=== PATIENT | female | born 1935 | race African-American/Black ===

== ENCOUNTER 2017-01-19 19:02 | Emergency (ER) | payer OTHER ==
[~2017-01-19] VITALS: Ht 162.6 cm; Wt 70.0 kg
[~2017-01-19 19:02] MED LIST: ALBUTEROL; ATENOLOL
[2017-01-19] MEDS ORDERED: MAGNESIUM/ALUMINUM HYDROXIDE/SIMETHICONE 30ML UDC PO ONE (19:30)
[2017-01-19 20:15] VITALS: BP 122/74
== END 2017-01-19 20:43 | disposition home or self-care (01) ==
LOC: ER 20:10
DX: T54.91XA Toxic effect of unspecified corrosive substance, accidental (unintentional), initial encounter (principal); Y92.9 Unspecified place or not applicable; I10 Essential (primary) hypertension; J98.11 Atelectasis; Q25.46 Tortuous aortic arch; I51.7 Cardiomegaly; F03.90 Unspecified dementia, unspecified severity, without behavioral disturbance, psychotic disturbance, mood disturbance, and anxiety; H40.9 Unspecified glaucoma; Z88.0 Allergy status to penicillin
CPT/HCPCS: 71010; 99283

== ENCOUNTER 2020-11-07 23:05 | Emergency (ER) | payer OTHER ==
[~2020-11-07] VITALS: Ht 167.6 cm; Wt 73.0 kg
[2020-11-08] MEDS ORDERED: ASPIRIN 81MG TABLET PO ONE (01:00)
[2020-11-08 01:52] LABS: CHLORIDE 111 mEq/L (98-107)
[2020-11-08 01:56] LABS: BASOPHILS % 0.4 % (0.0-2.0); EOSINOPHILS % 0.6 % (0.0-5.0); HEMATOCRIT. 35.5 % (36.0-48.0); HEMOGLOBIN. 11.6 g/dL (12.0-16.0); LYMPHOCYTES % 42.5 % (20.0-50.0); MEAN CORPUSCULAR HEMOGLOBIN 30.2 pg (28.0-32.0); MEAN CORPUSCULAR VOLUME 92.4 fL (81.0-99.0); MEAN PLATELET VOLUME 10.7 fl (7.4-10.4); MONOCYTES % 13.5 % (2.0-8.0); PLATELET 94 x1000/uL (130-400); RED BLOOD CELL COUNT 3.85 mill/uL (4.2-5.4); RED CELL DISTRIBUTION WIDTH 13.5 % (11.6-14.6)
[2020-11-08] MEDS ORDERED: FUROSEMIDE 40MG TABLET PO NR (03:00)
[2020-11-08 05:35] VITALS: BP 157/52
== END 2020-11-08 05:54 | disposition home or self-care (01) ==
LOC: ER 23:33
DX: R60.0 Localized edema (principal); I10 Essential (primary) hypertension; F03.90 Unspecified dementia, unspecified severity, without behavioral disturbance, psychotic disturbance, mood disturbance, and anxiety; H40.9 Unspecified glaucoma; Z98.890 Other specified postprocedural states; Z88.0 Allergy status to penicillin
CPT/HCPCS: 36415; 71045; 80053; 83880; 84484; 85025; 93005; 93970; 99285

== ENCOUNTER 2021-08-03 08:07 | Emergency (ER) | payer OTHER ==
[~2021-08-03] VITALS: Ht 165.1 cm; Wt 65.0 kg
[2021-08-03] MEDS ORDERED: SODIUM CHLORIDE 0.9% 500 ML IV ONE (08:30)
[2021-08-03] MEDS ORDERED: ACETAMINOPHEN 325MG TABLET PO ONE (08:45)
[2021-08-03 08:47] LABS: BASOPHILS % 0.2 % (0.0-2.0); EOSINOPHILS % 0.4 % (0.0-5.0); HEMATOCRIT. 35.2 % (36.0-48.0); HEMOGLOBIN. 11.7 g/dL (12.0-16.0); LYMPHOCYTES % 44.2 % (20.0-50.0); MEAN CORPUSCULAR HEMOGLOBIN 29.8 pg (28.0-32.0); MEAN CORPUSCULAR VOLUME 89.2 fL (81.0-99.0); MONOCYTES % 12.1 % (2.0-8.0); NEUTROPHILS % 43.1 % (40.0-76.0); PLATELET 131 x1000/uL (130-400); RED BLOOD CELL COUNT 3.94 mill/uL (4.2-5.4); RED CELL DISTRIBUTION WIDTH 13.9 % (11.6-14.6)
[2021-08-03 08:55] LABS: CHLORIDE 108 mEq/L (98-107)
[2021-08-03] MEDS ORDERED: FAMOTIDINE 20MG/2ML VIAL IV ONE (09:15)
[2021-08-03 10:51] LABS: CLARITY URINE CLEAR (CLEAR); COLOR URINE YELLOW (YELLOW); KETONES URINE TRACE (NEGATIVE); LEUKOCYTE ESTERASE URINE 2+ (NEGATIVE); NITRITE URINE NEGATIVE (NEGATIVE); OCCULT BLOOD URINE NEGATIVE (NEGATIVE); PROTEIN URINE NEGATIVE (NEGATIVE)
[2021-08-03] MEDS ORDERED: LEVOFLOXACIN 500MG PREMIX 100 ML IV ONE (11:00)
[2021-08-03 13:04] VITALS: BP 163/73
== END 2021-08-03 15:38 | disposition short-term general hospital (02) ==
LOC: ER 08:07 → EDBEDREQ 08:55 → ER 15:38 → CANBEDREQ 08-04 03:18
DX: N39.0 Urinary tract infection, site not specified (principal); D72.819 Decreased white blood cell count, unspecified; I10 Essential (primary) hypertension; E11.9 Type 2 diabetes mellitus without complications; Z88.0 Allergy status to penicillin; Z20.822 Contact with and (suspected) exposure to COVID-19
CPT/HCPCS: 36415; 71045; 74176; 80053; 81003; 83690; 83880; 84484; 85025; 87086; 87426; 87804; 93005; 96361; 96365; 99285; J1956; J7040